=== PATIENT | female | born 1985 | race Caucasian/White ===

== ENCOUNTER 2020-03-13 05:30 | Emergency (ER) | payer BC, OTHER ==
[2020-03-13] MEDS ORDERED: Ondansetron 4 MG/2 ML SDV IVPUSH ONE ×2 (05:40→07:14)
[2020-03-13] MEDS ORDERED: Ketorolac 30 MG/ML SDV ONE (05:42)
[2020-03-13] MEDS ORDERED: Ondansetron 4 MG/2 ML SDV ONE (05:42)
[2020-03-13] MEDS ORDERED: Ketorolac 30 MG/ML SDV IVPUSH ONE (05:43)
[2020-03-13] MEDS: Sodium Chloride 0.9% 1,000 ML IV ONE ×2 (05:48→07:08)
[2020-03-13] MEDS ORDERED: Metoclopramide 10 MG/2 ML SDV IVPUSH ONE (05:59)
--- NOTE | 2020-03-13 05:59 | EDM.PDOC ---
ED HPI GENERAL MEDICAL PROBLEM - General Chief Complaint: Gastrointestinal Problem Stated Complaint: VOMITING Time Seen by Provider: 03/13/20 05:40 Source of Information: Reports: Patient History Limitations: Reports: No Limitations - History of Present Illness INITIAL COMMENTS - FREE TEXT/NARRATIVE: c/o N/V/D works as [employer], at trial the last 2d ate a taco 2d ago, began n/v at 4a yesterday (25.5h ago) would vomit every few minutes, has soreness of here throat from emesis, denies abd pain had "a squirt" of green liquid stool after each emesis altho diarrhea stopped 8.5h ago took no meds at home, on Ritalin for ADHD, last used 1w ago, no other meds does not like how Ritalin makes her feel and uses only when she has a big project lives with and dtr who are not ill only able to keep down ice chips no prior abd surgery drinks wine on occasion had a similar episode 2-3y ago which she ascribes to the norovirus 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 has an IUD - Related Data Allergies Allergy/AdvReac Type Severity Reaction Status Date / Time No Known Allergies Allergy Verified 03/13/20 05:40 Home Meds: Home Meds Omeprazole 20 mg PO DAILY #14 tablet.dr 03/13/20 [Rx] Potassium Chloride 20 meq PO BID #10 tablet.er 03/13/20 [Rx] ondansetron HCL [Ondansetron HCl] 4 mg PO Q4H PRN #12 tablet 03/13/20 [Rx] ED ROS GENERAL - Review of Systems Review Of Systems: See Below Constitutional: Reports: No Symptoms HEENT: Reports: No Symptoms Respiratory: Reports: No Symptoms Cardiovascular: Reports: No Symptoms Endocrine: Reports: No Symptoms GI/Abdominal: Reports: Diarrhea, Nausea, Vomiting, Other (unable to eat). Denies: Abdominal Pain, Hematochezia, Melena : Reports: No Symptoms Musculoskeletal: Reports: No Symptoms Skin: Reports: No Symptoms Neurological: Reports: No Symptoms Psychiatric: Reports: No Symptoms Hematologic/Lymphatic: Reports: No Symptoms Immunologic: Reports: No Symptoms ED EXAM, GI/ABD - Physical Exam Exam: See Below Exam Limited By: No Limitations General Appearance: Alert, WD/WN, Mild Distress Head: Atraumatic, Normocephalic Neck: Normal Inspection, Supple, Non-Tender, Full Range of Motion Respiratory/Chest: No Respiratory Distress, Lungs Clear, Normal Breath Sounds, No Accessory Muscle Use Cardiovascular: Regular Rate, Rhythm, No Edema, No Murmur GI/Abdominal Exam: Normal Bowel Sounds, Soft, Non-Tender, No Distention, Other (no point tender, ND, no HSM) Back Exam: Normal Inspection, Full Range of Motion. No: CVA Tenderness (R), CVA Tenderness (L) Extremities: Normal Inspection, Non-Tender, No Pedal Edema Neurological: Alert, Oriented, CN II-XII Intact, Normal Cognition, No Motor/Sensory Deficits Psychiatric: Normal Affect, Normal Mood Skin Exam: Warm, Dry, Intact, Normal Color, No Rash Lymphatic: No Adenopathy Course - Vital Signs Last Recorded V/S: Last Vital Signs Temp 36.7 C 03/13/20 05:30 Pulse 78 03/13/20 05:30 Resp 17 03/13/20 05:30 BP 150/90 H 03/13/20 05:30 Pulse Ox 98 03/13/20 05:30 - Orders/Labs/Meds Orders: Active Orders 24 hr Category Date Time Status EKG Documentation Completion [RC] ASDIRECTED Care 03/13/20 07:21 Ordered Abdomen Pelvis wo Cont [CT] Stat Exams 03/13/20 07:16 Ordered Chest 2V [CR] Stat Exams 03/13/20 07:19 Ordered CORONAVIRUS COVID-19 GAL [MOLEC] Stat Lab 03/13/20 06:45 Received Sodium Chloride 0.9% [Normal Saline] 1,000 ml Med 03/13/20 08:01 Active IV .BOLUS EKG 12 Lead [EK] Routine Ther 03/13/20 07:20 Ordered Medication Orders Sodium Chloride (Normal Saline) 1,000 mls @ 999 mls/hr IV .BOLUS ONE Stop: 03/13/20 09:01 Last Admin: 03/13/20 08:02 Dose: 999 mls/hr Documented by: LUCY Labs: Laboratory Tests 03/13/20 03/13/20 03/13/20 Range/Units 06:15 06:15 06:15 WBC (4.5-12.0) X10-3/uL RBC (3.23-5.20) x10(6)uL Hgb (11.5-15.5) g/dL Hct (30.0-51.3) % MCV (80-96) fL MCH (27.7-33.6) pg MCHC (32.2-35.4) g/dL RDW (11.5-15.5) % Plt Count (125-369) X10(3)uL MPV (7.4-10.4) fL Add Manual Diff Neutrophils % (Manual) (46-82) % Band Neutrophils % (0-6) % Lymphocytes % (Manual) (13-37) % Monocytes % (Manual) (4-12) % Sodium (135-145) mmol/L Potassium (3.5-5.3) mmol/L Chloride (100-110) mmol/L Carbon Dioxide (21-32) mmol/L BUN (7-18) mg/dL Creatinine (0.55-1.02) mg/dL Est Cr Clr Drug Dosing Estimated GFR (MDRD) (>60) BUN/Creatinine Ratio (9-20) Glucose (80-116) mg/dL Calcium (8.6-10.2) mg/dL Magnesium 1.9 (1.8-2.5) mg/dL Total Bilirubin (0.1-1.3) mg/dL AST (5-25) IU/L ALT (12-36) U/L Alkaline Phosphatase (56-112) IU/L Troponin I 4.5 (4.0-60.3) pg/mL C-Reactive Protein (0.5-0.9) mg/dL Total Protein (6.0-8.0) g/dL Albumin (3.5-5.2) g/dL Globulin g/dL Albumin/Globulin Ratio Lipase (73-393) U/L TSH, Ultra Sensitive 0.67 (0.36-3.74) IU/mL Urine Color (YELLOW) Urine Appearance (CLEAR) Urine pH (5.0-6.5) Ur Specific [place] (1.010-1.025) Urine Protein (NEGATIVE) mg/dL Urine Glucose (UA) (NORMAL) mg/dL Urine Ketones (NEGATIVE) mg/dL Urine Occult Blood (NEGATIVE) Urine Nitrite (NEGATIVE) Urine Bilirubin (NEGATIVE) Urine Urobilinogen (NEGATIVE) mg/dL Ur Leukocyte Esterase (NEGATIVE) Urine RBC (0-5) Urine WBC (0-5) Ur Squamous Epith Cells (NS,R,O) Urine Bacteria (NS) Urine HCG, Qual (NEGATIVE) Urine Opiates Screen (NEGATIVE) Ur Oxycodone Screen (NEGATIVE) Ur Propoxyphene Screen (NEGATIVE) Ur Barbituates Screen (NEGATIVE) Ur Tricyclics Screen (NEGATIVE) Ur Phencyclidine Scrn (NEGATIVE) Ur Amphetamine Screen (NEGATIVE) Urine MDMA Screen (NEGATIVE) U Benzodiazepines Scrn (NEGATIVE) U Cocaine Metab Screen (NEGATIVE) U Marijuana (THC) Screen (NEGATIVE) 03/13/20 03/13/20 03/13/20 Range/Units 06:25 06:25 06:25 WBC 19.3 H (4.5-12.0) X10-3/uL RBC 4.67 (3.23-5.20) x10(6)uL Hgb 14.1 (11.5-15.5) g/dL Hct 42.8 (30.0-51.3) % MCV 91.7 (80-96) fL MCH 30.2 (27.7-33.6) pg MCHC 32.9 (32.2-35.4) g/dL RDW 11.6 (11.5-15.5) % Plt Count 207 (125-369) X10(3)uL MPV 10.1 (7.4-10.4) fL Add Manual Diff Yes Neutrophils % (Manual) 89 H (46-82) % Band Neutrophils % 5 (0-6) % Lymphocytes % (Manual) 2 L (13-37) % Monocytes % (Manual) 4 (4-12) % Sodium 135 (135-145) mmol/L Potassium 2.9 L (3.5-5.3) mmol/L Chloride 95 L (100-110) mmol/L Carbon Dioxide 29 (21-32) mmol/L BUN 16 (7-18) mg/dL Creatinine 0.9 (0.55-1.02) mg/dL Est Cr Clr Drug Dosing TNP Estimated GFR (MDRD) > 60 (>60) BUN/Creatinine Ratio 17.8 (9-20) Glucose 163 H (80-116) mg/dL Calcium 9.1 (8.6-10.2) mg/dL Magnesium (1.8-2.5) mg/dL Total Bilirubin 0.7 (0.1-1.3) mg/dL AST 17 (5-25) IU/L ALT 17 (12-36) U/L Alkaline Phosphatase 84 (56-112) IU/L Troponin I (4.0-60.3) pg/mL C-Reactive Protein 3.2 H* (0.5-0.9) mg/dL Total Protein 7.8 (6.0-8.0) g/dL Albumin 4.0 (3.5-5.2) g/dL Globulin 3.8 g/dL Albumin/Globulin Ratio 1.1 Lipase 86 (73-393) U/L TSH, Ultra Sensitive (0.36-3.74) IU/mL Urine Color (YELLOW) Urine Appearance (CLEAR) Urine pH (5.0-6.5) Ur Specific [place] (1.010-1.025) Urine Protein (NEGATIVE) mg/dL Urine Glucose (UA) (NORMAL) mg/dL Urine Ketones (NEGATIVE) mg/dL Urine Occult Blood (NEGATIVE) Urine Nitrite (NEGATIVE) Urine Bilirubin (NEGATIVE) Urine Urobilinogen (NEGATIVE) mg/dL Ur Leukocyte Esterase (NEGATIVE) Urine RBC (0-5) Urine WBC (0-5) Ur Squamous Epith Cells (NS,R,O) Urine Bacteria (NS) Urine HCG, Qual (NEGATIVE) Urine Opiates Screen (NEGATIVE) Ur Oxycodone Screen (NEGATIVE) Ur Propoxyphene Screen (NEGATIVE) Ur Barbituates Screen (NEGATIVE) Ur Tricyclics Screen (NEGATIVE) Ur Phencyclidine Scrn (NEGATIVE) Ur Amphetamine Screen (NEGATIVE) Urine MDMA Screen (NEGATIVE) U Benzodiazepines Scrn (NEGATIVE) U Cocaine Metab Screen (NEGATIVE) U Marijuana (THC) Screen (NEGATIVE) 03/13/20 03/13/20 03/13/20 Range/Units 08:05 08:05 08:05 WBC (4.5-12.0) X10-3/uL RBC (3.23-5.20) x10(6)uL Hgb (11.5-15.5) g/dL Hct (30.0-51.3) % MCV (80-96) fL MCH (27.7-33.6) pg MCHC (32.2-35.4) g/dL RDW (11.5-15.5) % Plt Count (125-369) X10(3)uL MPV (7.4-10.4) fL Add Manual Diff Neutrophils % (Manual) (46-82) % Band Neutrophils % (0-6) % Lymphocytes % (Manual) (13-37) % Monocytes % (Manual) (4-12) % Sodium (135-145) mmol/L Potassium (3.5-5.3) mmol/L Chloride (100-110) mmol/L Carbon Dioxide (21-32) mmol/L BUN (7-18) mg/dL Creatinine (0.55-1.02) mg/dL Est Cr Clr Drug Dosing Estimated GFR (MDRD) (>60) BUN/Creatinine Ratio (9-20) Glucose (80-116) mg/dL Calcium (8.6-10.2) mg/dL Magnesium (1.8-2.5) mg/dL Total Bilirubin (0.1-1.3) mg/dL AST (5-25) IU/L ALT (12-36) U/L Alkaline Phosphatase (56-112) IU/L Troponin I (4.0-60.3) pg/mL C-Reactive Protein (0.5-0.9) mg/dL Total Protein (6.0-8.0) g/dL Albumin (3.5-5.2) g/dL Globulin g/dL Albumin/Globulin Ratio Lipase (73-393) U/L TSH, Ultra Sensitive (0.36-3.74) IU/mL Urine Color Yellow (YELLOW) Urine Appearance Slightly cloudy (CLEAR) Urine pH 9.0 H (5.0-6.5) Ur Specific [place] 1.015 (1.010-1.025) Urine Protein Negative (NEGATIVE) mg/dL Urine Glucose (UA) Normal (NORMAL) mg/dL Urine Ketones 50 H (NEGATIVE) mg/dL Urine Occult Blood Negative (NEGATIVE) Urine Nitrite Negative (NEGATIVE) Urine Bilirubin Negative (NEGATIVE) Urine Urobilinogen Normal (NEGATIVE) mg/dL Ur Leukocyte Esterase Negative (NEGATIVE) Urine RBC 0-5 (0-5) Urine WBC 0-5 (0-5) Ur Squamous Epith Cells Moderate H (NS,R,O) Urine Bacteria Few H (NS) Urine HCG, Qual Negative (NEGATIVE) Urine Opiates Screen Negative (NEGATIVE) Ur Oxycodone Screen Negative (NEGATIVE) Ur Propoxyphene Screen Negative (NEGATIVE) Ur Barbituates Screen Negative (NEGATIVE) Ur Tricyclics Screen Negative (NEGATIVE) Ur Phencyclidine Scrn Negative (NEGATIVE) Ur Amphetamine Screen Positive H (NEGATIVE) Urine MDMA Screen Negative (NEGATIVE) U Benzodiazepines Scrn Negative (NEGATIVE) U Cocaine Metab Screen Negative (NEGATIVE) U Marijuana (THC) Screen Positive H (NEGATIVE) Meds: Medications Generic Name Dose Route Start Last Admin Trade Name Freq PRN Reason Stop Dose Admin Sodium Chloride 1,000 mls @ 999 mls/hr 03/13/20 08:01 03/13/20 08:02 Normal Saline IV 03/13/20 09:01 999 mls/hr .BOLUS ONE Administration Discontinued Medications Generic Name Dose Route Start Last Admin Trade Name Freq PRN Reason Stop Dose Admin Hydroxyzine HCl 50 mg 03/13/20 06:21 03/13/20 06:27 Vistaril IM 03/13/20 06:22 50 mg ONETIME ONE Administration Sodium Chloride 1,000 mls @ 999 mls/hr 03/13/20 05:43 03/13/20 06:49 Normal Saline IV 03/13/20 06:43 Infused .BOLUS ONE Infusion Sodium Chloride 1,000 mls @ 999 mls/hr 03/13/20 06:05 03/13/20 07:08 Normal Saline IV 03/13/20 07:05 999 mls/hr .BOLUS ONE Administration Ketorolac Tromethamine Confirm 03/13/20 05:42 03/13/20 05:53 Toradol Administered 03/13/20 05:43 Not Given Dose 30 mg .ROUTE .STK-MED ONE Ketorolac Tromethamine 30 mg 03/13/20 05:43 03/13/20 06:26 Toradol IVPUSH 03/13/20 05:44 Not Given ONETIME ONE Lorazepam 1 mg 03/13/20 07:16 03/13/20 07:44 Ativan IVPUSH 03/13/20 07:17 1 mg ONETIME ONE Administration Metoclopramide HCl 10 mg 03/13/20 05:59 03/13/20 06:10 Reglan IVPUSH 03/13/20 06:00 10 mg ONETIME ONE Administration Ondansetron HCl 4 mg 03/13/20 05:40 03/13/20 05:45 Zofran IVPUSH 03/13/20 05:41 4 mg ONETIME ONE Administration Ondansetron HCl Confirm 03/13/20 05:42 03/13/20 05:52 Zofran Administered 03/13/20 05:43 Not Given Dose 4 mg .ROUTE .STK-MED ONE Ondansetron HCl 4 mg 03/13/20 07:14 03/13/20 07:44 Zofran IVPUSH 03/13/20 07:15 4 mg ONETIME ONE Administration - Re-Assessments/Exams Free Text/Narrative Re-Assessment/Exam: 03/13/20 08:22 MPMP is neg 03/13/20 10:08 pt is sound asleep, pt states she takes Ritalin prn although she has had no fill of Ritalin in the past year, yet there is amphetamine in her urine (as well as THC), which may have been a trigger for her GI sxs does have a HH with likely has had GERD with associated esophagitis no evidence of infection despite WBC 19.3 and left shift which is likely d/t amphetamine and severe dehydration etiology of CRP 3.2 is unclear on review of clinic records by RN, pt given Rx for Protonix by Dr Boyd in January - Departure Time of Disposition: 09:56 Disposition: Home, Self-Care 01 Condition: Good Clinical Impression: GERD with esophagitis, Hiatal hernia, Moderate dehydration, Hypokalemia - Discharge Information *PRESCRIPTION DRUG MONITORING PROGRAM REVIEWED*: Yes *COPY OF PRESCRIPTION DRUG MONITORING REPORT IN PATIENT BRENDA: No Prescriptions: Omeprazole 20 mg PO DAILY #14 tablet. ondansetron HCL [Ondansetron HCl] 4 mg PO Q4H PRN #12 tablet PRN Reason: Nausea Potassium Chloride 20 meq PO BID #10 tablet.er Instructions: Heartburn, Hiatal Hernia, Rehydration, Adult, Hypokalemia Forms: ED Department Discharge, ED Return to Work/School Form Additional Instructions: Go to the walk-in clinic tomorrow for a repeat CBC and further evaluation. Claire is the provider on duty and will be expecting you. There is no evidence of infection on the chest x-ray or CT scan. However, there is a hiatal hernia and evidence of reflux of acid into the esophagus. In order to decrease acid production, take omeprazole 20 mg 1 tab daily for 14 days. In order to coat and protect the esophagus and stomach, take liquid antacid 30 ml 4 times a day (usually after meals and bedtime). To replace potassium, take potassium 20 meq 1 tab 2 times a day for 5 days. Increase fluids, as you were quite dehydrated. No work today. Avoid street drugs including marijuana which can make your symptoms worse. Sepsis Event Note (ED) - Focused Exam Vital Signs: Vital Signs Temp Pulse Resp BP Pulse Ox 03/13/20 05:30 36.7 C 78 17 150/90 H 98 - My Orders Last 24 Hours: My Active Orders 03/13/20 06:45 CORONAVIRUS COVID-19 GAL [MOLEC] Stat 03/13/20 07:16 Abdomen Pelvis wo Cont [CT] Stat 03/13/20 07:19 Chest 2V [CR] Stat 03/13/20 07:20 EKG 12 Lead [EK] Routine 03/13/20 07:21 EKG Documentation Completion [RC] ASDIRECTED 03/13/20 08:01 Sodium Chloride 0.9% [Normal Saline] 1,000 ml IV .BOLUS - Assessment/Plan Last 24 Hours: My Active Orders 03/13/20 06:45 CORONAVIRUS COVID-19 GAL [MOLEC] Stat 03/13/20 07:16 Abdomen Pelvis wo Cont [CT] Stat 03/13/20 07:19 Chest 2V [CR] Stat 03/13/20 07:20 EKG 12 Lead [EK] Routine 03/13/20 07:21 EKG Documentation Completion [RC] ASDIRECTED 03/13/20 08:01 Sodium Chloride 0.9% [Normal Saline] 1,000 ml IV .BOLUS
[2020-03-13] MEDS ORDERED: Sodium Chloride 0.9% 1,000 ML IV ONE ×2 (06:05→08:01)
[2020-03-13] MEDS ORDERED: hydrOXYzine HCl 50 MG/ML SDV IM ONE (06:21)
[2020-03-13] MEDS ORDERED: LORazepam 2 MG/ML SDV IVPUSH ONE (07:16)
[2020-03-13] MEDS ORDERED: Iopamidol 755 Mg/ML 100 ML Bottle IV ONE (08:38)
== END 2020-03-13 10:00 | disposition home or self-care (01) ==
LOC: FB.ED 05:30
DX: K21.00 Gastro-esophageal reflux disease with esophagitis, without bleeding (principal); K44.9 Diaphragmatic hernia without obstruction or gangrene; E86.0 Dehydration; E87.6 Hypokalemia
CPT/HCPCS: 36415; 71046; 74177; 80053; 80305; 81001; 81025; 83690; 83735; 84443; 84484; 85025; 86140; 87635; 93005; 96361; 96372; 96374; 96375; 96376; 99284; J2060; J2405; J2765; J3410; J7030; Q9967; U0002

== ENCOUNTER 2020-03-14 12:04 | Emergency (ER) | payer BC, OTHER ==
[2020-03-14] MEDS ORDERED: Prochlorperazine 5 MG Tab PO ONE (12:05)
--- NOTE | 2020-03-14 12:38 | EDM.PDOC ---
ED HPI GENERAL MEDICAL PROBLEM - General Chief Complaint: Gastrointestinal Problem Stated Complaint: VOMITING DAYS CANT KEEP ANYTHING DOWN Time Seen by Provider: 03/14/20 12:38 Source of Information: Reports: Patient History Limitations: Reports: No Limitations - History of Present Illness INITIAL COMMENTS - FREE TEXT/NARRATIVE: 35-year-old female who awoke at 4 AM on 03/12/2020 with vomiting and has had protracted vomiting since that time. She was seen in the emergency department yesterday by Dr. Teresa had a fairly complete and thorough workup which included blood tests, urine tests, chest x-ray and CT scan of abdomen and pelvis. She did have some mild hypokalemia and she had elevated white blood cell count. However, the chest x-ray and the CT scan of her abdomen and pelvis were normal. She was given 3 L of normal saline IV and was discharged with oral Zofran. According to the patient, she has had protracted vomiting since discharge and has since developed some the gastric pain that seems to be worse with palpation and also with vomiting. She also has a sore throat associated with vomiting. She reports vomiting 20+ times. She has had no bowel movement since , 03/12/2020, but did have diarrhea at that time. She reports the pain is an "aggravating" pain she would rated as a 3-4/10. No fevers or chills. No urine output since yesterday when she was here in the emergency department. No cough. No difficulty breathing. She reports that she feels weak and dizzy. No syncope but near syncope at times when she has stood up. No sick contacts. No other people in her household with similar symptoms. There are no other associated signs or symptoms. There are no other modifying factors. 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) - Related Data Allergies Allergy/AdvReac Type Severity Reaction Status Date / Time No Known Allergies Allergy Verified 03/14/20 12:40 Home Meds: Home Meds Omeprazole 20 mg PO DAILY #14 tablet.dr 03/13/20 [Rx] Potassium Chloride 20 meq PO BID #10 tablet.er 03/13/20 [Rx] ondansetron HCL [Ondansetron HCl] 4 mg PO Q4H PRN #12 tablet 03/13/20 [Rx] Methylphenidate HCl 20 mg PO DAILY 03/14/20 [History] Past Medical History Psychiatric History: Reports: ADHD, Anxiety, Bipolar, Depression - Past Surgical History HEENT Surgical History: Reports: Oral Surgery ([place] teeth extraction) Social & Family History - Tobacco Use Smoking Status *Q: Former Smoker (Quit in 2010.) - Caffeine Use Caffeine Use: Reports: None - Alcohol Use Alcohol Use History: Yes Alcohol Use Frequency: Weekly (Drinks a few glasses of wine about 3 times a week.) - Recreational Drug Use Recreational Drug Use: Yes Drug Use in Last 12 Months: Yes Recreational Drug Type: Reports: Marijuana/Hashish - Living Situation & Occupation Living situation: Reports: 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.) ED ROS GENERAL - Review of Systems Review Of Systems: See Below Constitutional: Reports: Weakness HEENT: Reports: Throat Pain Respiratory: Reports: No Symptoms Cardiovascular: Reports: No Symptoms GI/Abdominal: Reports: Abdominal Pain (Epigastric abdominal pain which developed yesterday.), Nausea, Vomiting : Reports: Other (Decreased urine output with no urine output since in the emergency department yesterday.) Musculoskeletal: Reports: No Symptoms Skin: Reports: No Symptoms Neurological: Reports: Dizziness, Weakness (All over) Hematologic/Lymphatic: Reports: No Symptoms Immunologic: Reports: No Symptoms ED EXAM, GI/ABD - Physical Exam Exam: See Below Exam Limited By: No Limitations General Appearance: Alert, Moderate Distress, Obese, Other (Blanco and appropriate in her conversation.) Eyes: Bilateral: Normal Appearance (Sclera are anicteric.), EOMI Ears: Normal External Exam, Hearing Grossly Normal Nose: Normal Inspection, Normal Mucosa, No Blood Throat/Mouth: Normal Voice, No Airway Compromise, Other (Dry mucous membranes.) Head: Atraumatic, Normocephalic Neck: Normal Inspection, Supple, Non-Tender, Full Range of Motion Respiratory/Chest: No Respiratory Distress, Lungs Clear, Normal Breath Sounds, N o Accessory Muscle Use, Chest Non-Tender Cardiovascular: Normal Peripheral Pulses, Regular Rate, Rhythm, No JVD, No Murmur GI/Abdominal Exam: Normal Bowel Sounds, Soft, No Distention, No Mass, Tender (In epigastrium, mild) Back Exam: Normal Inspection, Full Range of Motion Extremities: Normal Inspection, Normal Range of Motion, Non-Tender, No Pedal Edema, Normal Capillary Refill Neurological: Alert, Oriented, CN II-XII Intact, Normal Cognition, No Motor/Sensory Deficits Psychiatric: Normal Affect Skin Exam: Warm, Dry, Intact, Normal Color, No Rash Lymphatic: No Adenopathy Course - Vital Signs Last Recorded V/S: Last Vital Signs Temp 36.6 C 03/14/20 12:20 Pulse 77 03/14/20 15:00 Resp 20 03/14/20 15:00 BP 146/88 H 03/14/20 15:00 Pulse Ox 99 03/14/20 15:00 - Orders/Labs/Meds Orders: Active Orders 24 hr Category Date Time Status Potassium Chloride [Klor-Con] Med 03/14/20 17:15 Active 40 meq PO ASDIRECTED Sodium Chloride 0.9% [Saline Flush] Med 03/14/20 12:59 Active 10 ml FLUSH ASDIRECTED PRN Peripheral IV Insertion Adult [OM.PC] Routine Oth 03/14/20 12:59 Ordered Medication Orders Potassium Chloride (Klor-Con) 40 meq PO ASDIRECTED KAYE Last Admin: 03/14/20 17:30 Dose: 40 meq Documented by: DENIS Sodium Chloride (Saline Flush) 10 ml FLUSH ASDIRECTED PRN PRN Reason: Keep Vein Open Labs: Laboratory Tests 03/14/20 03/14/20 03/14/20 Range/Units 12:10 13:37 13:37 WBC 13.0 H (4.5-12.0) X10-3/uL RBC 4.54 (3.23-5.20) x10(6)uL Hgb 14.4 (11.5-15.5) g/dL Hct 42.1 (30.0-51.3) % MCV 92.8 (80-96) fL MCH 31.6 (27.7-33.6) pg MCHC 34.1 (32.2-35.4) g/dL RDW 11.9 (11.5-15.5) % Plt Count 217 (125-369) X10(3)uL MPV 9.9 (7.4-10.4) fL Neut % (Auto) 86.0 H (46-82) % Lymph % (Auto) 7.2 L (13-37) % [place] % (Auto) 6.5 (4-12) % Eos % (Auto) 0 L (1.0-5.0) % Baso % (Auto) 0 (0-2) % Neut # (Auto) 11.2 H (1.6-8.3) # Lymph # (Auto) 0.9 (0.6-5.0) # [place] # (Auto) 0.8 (0.0-1.3) # Eos # (Auto) 0.0 (0.0-0.8) # Baso # (Auto) 0.0 (0.0-0.2) # Sodium 138 (135-145) mmol/L Potassium 3.0 L (3.5-5.3) mmol/L Chloride 97 L (100-110) mmol/L Carbon Dioxide 32 (21-32) mmol/L BUN 11 (7-18) mg/dL Creatinine 0.8 (0.55-1.02) mg/dL Est Cr Clr Drug Dosing 98.07 mL/min Estimated GFR (MDRD) > 60 (>60) BUN/Creatinine Ratio 13.8 (9-20) Glucose 103 (80-116) mg/dL Calcium 8.6 (8.6-10.2) mg/dL Magnesium 2.2 (1.8-2.5) mg/dL Total Bilirubin 0.5 (0.1-1.3) mg/dL AST 18 (5-25) IU/L ALT 17 (12-36) U/L Alkaline Phosphatase 71 (56-112) IU/L Total Protein 7.3 (6.0-8.0) g/dL Albumin 3.5 (3.5-5.2) g/dL Globulin 3.8 g/dL Albumin/Globulin Ratio 0.9 Lipase (73-393) U/L 10/10/20 Range/Units 13:37 WBC (4.5-12.0) X10-3/uL RBC (3.23-5.20) x10(6)uL Hgb (11.5-15.5) g/dL Hct (30.0-51.3) % MCV (80-96) fL MCH (27.7-33.6) pg MCHC (32.2-35.4) g/dL RDW (11.5-15.5) % Plt Count (125-369) X10(3)uL MPV (7.4-10.4) fL Neut % (Auto) (46-82) % Lymph % (Auto) (13-37) % [place] % (Auto) (4-12) % Eos % (Auto) (1.0-5.0) % Baso % (Auto) (0-2) % Neut # (Auto) (1.6-8.3) # Lymph # (Auto) (0.6-5.0) # [place] # (Auto) (0.0-1.3) # Eos # (Auto) (0.0-0.8) # Baso # (Auto) (0.0-0.2) # Sodium (135-145) mmol/L Potassium (3.5-5.3) mmol/L Chloride (100-110) mmol/L Carbon Dioxide (21-32) mmol/L BUN (7-18) mg/dL Creatinine (0.55-1.02) mg/dL Est Cr Clr Drug Dosing mL/min Estimated GFR (MDRD) (>60) BUN/Creatinine Ratio (9-20) Glucose (80-116) mg/dL Calcium (8.6-10.2) mg/dL Magnesium (1.8-2.5) mg/dL Total Bilirubin (0.1-1.3) mg/dL AST (5-25) IU/L ALT (12-36) U/L Alkaline Phosphatase (56-112) IU/L Total Protein (6.0-8.0) g/dL Albumin (3.5-5.2) g/dL Globulin g/dL Albumin/Globulin Ratio Lipase 80 (73-393) U/L Meds: Medications Generic Name Dose Route Start Last Admin Trade Name Freq PRN Reason Stop Dose Admin Potassium Chloride 40 meq 03/14/20 17:15 03/14/20 17:30 Klor-Con PO 40 meq ASDIRECTED KAYE Administration Sodium Chloride 10 ml 10/10/20 12:59 Saline Flush FLUSH ASDIRECTED PRN Keep Vein Open Discontinued Medications Generic Name Dose Route Start Last Admin Trade Name Tarsha PRN Reason Stop Dose Admin Sodium Chloride 1,000 mls @ 999 mls/min 03/14/20 13:00 03/14/20 15:00 Normal Saline IV 999 mls/min .BOLUS KAYE Administration Promethazine HCl 25 mg/ Sodium 51 mls @ 200 mls/hr 03/14/20 13:01 03/14/20 13:41 Chloride IV 03/14/20 13:16 200 mls/hr ONETIME ONE Administration Potassium Chloride 10 meq/ 100 mls @ 100 mls/hr 03/14/20 15:14 03/14/20 15:34 Premix IV 03/14/20 16:13 100 mls/hr ONETIME ONE Administration Sodium Chloride 1,000 mls @ 999 mls/hr 03/14/20 18:01 03/14/20 19:17 Normal Saline IV 03/14/20 19:01 999 mls/hr .BOLUS ONE Administration Metoclopramide HCl 10 mg 03/14/20 18:01 03/14/20 19:16 Reglan IVPUSH 03/14/20 18:02 10 mg ONETIME ONE Administration Ondansetron HCl 4 mg 03/14/20 13:00 03/14/20 13:33 Zofran IVPUSH 03/14/20 13:01 4 mg ONETIME ONE Administration Pantoprazole Sodium 80 mg 03/14/20 13:05 03/14/20 13:42 Protonix Iv IVPUSH 03/14/20 13:06 80 mg .BOLUS ONE Administration - Re-Assessments/Exams Free Text/Narrative Re-Assessment/Exam: 03/14/20 18:50: Patient had received some normal saline as a bolus and she had also received Phenergan IV and Zofran IV. She was feeling much improved and had had no further emesis and was able to take ice chips without any nausea or vomiting. She had been given potassium chloride 10 mEq IV and we had attempted to give her 40 mEq of potassium orally and this had caused her to have nausea and some dry heaving. She will now be getting another liter of normal saline as a bolus and Reglan 10 mg IV. She is very much wanted to go home and feels that this is what it would take in order to facilitate her being able to go home. 03/14/20 20:20: Patient has received the other liter of normal saline as a bolus and the Reglan and she feels improved. She has no more nausea and wants to go home. Her blood tests were all reassuringly normal except for a slightly low potassium at 3.0. Her white blood cell count was 13.0 and her abdomen is essentially benign now. I will give the patient a take home pack of Compazine and she can use this in addition to the friend that she has for nausea. She should rest. She should stick with liquids for the next 12-18 hours and then advance her diet as tolerated. Precautions and reasons for return to the emergency department were discussed with the patient will she was in the emergency department were detailed in her discharge instructions. Departure - Departure Time of Disposition: 20:40 Disposition: Home, Self-Care 01 Condition: Good (Improved) Clinical Impression: Dehydration, Hypokalemia Vomiting Qualifiers: Vomiting type: unspecified Vomiting Intractability: intractable Nausea presence: with nausea Qualified Code(s): R11.2 - Nausea with vomiting, unspecified Gastritis Qualifiers: Gastritis type: unspecified gastritis Chronicity: acute Gastritis bleeding: without bleeding Qualified Code(s): K29.00 - Acute gastritis without bleeding - Discharge Information Instructions: Hypokalemia, Dehydration, Adult, [id number], Gastritis, Adult, [id number], Nausea and Vomiting, Adult, [id number] Referrals: Guerrero Lee MD [Primary Care Provider] - Forms: ED Department Discharge Additional Instructions: Your blood tests were the most part normal but you did have a slightly low potassium still. Your white blood cell count was decreased. You appear to have an inflammation of your stomach called gastritis. You also appeared to be dehydrated. Rest. Drink small amounts of fluids frequently and increase the fluid intake as you tolerated. Stick with clear liquids for the next 12-18 hours and advance your diet slowly as tolerated. You should get some [id number] Pepcid take that for the next week. Other medication as prescribed (Compazine). You should continue the Zofran as needed for nausea as well. Back to the emergency department for marked increase in pain, unrelenting vomiting or any other concerning sign or symptom. Sepsis Event Note (ED) - Focused Exam Vital Signs: Vital Signs Temp Pulse Resp BP Pulse Ox 03/14/20 15:00 77 20 146/88 H 99 03/14/20 12:35 71 16 146/88 H 99 03/14/20 12:25 79 18 146/88 H 99 03/14/20 12:20 36.6 C 77 20 131/101 H 99 - My Orders Last 24 Hours: My Active Orders 03/14/20 12:59 Sodium Chloride 0.9% [Saline Flush] 10 ml FLUSH ASDIRECTED PRN Peripheral IV Insertion Adult [OM.PC] Routine 03/14/20 17:15 Potassium Chloride [Klor-Con] 40 meq PO ASDIRECTED - Assessment/Plan Last 24 Hours: My Active Orders 03/14/20 12:59 Sodium Chloride 0.9% [Saline Flush] 10 ml FLUSH ASDIRECTED PRN Peripheral IV Insertion Adult [OM.PC] Routine 03/14/20 17:15 Potassium Chloride [Klor-Con] 40 meq PO ASDIRECTED
[2020-03-14] MEDS ORDERED: Sodium Chloride 0.9% 10 ML Syringe FLUSH PRN (12:59)
[2020-03-14] MEDS ORDERED: Ondansetron 4 MG/2 ML SDV IVPUSH ONE (13:00)
[2020-03-14] MEDS ORDERED: Promethazine 25 MG in Sodium Chloride 0.9% 50 ML IV ONE (13:01)
[2020-03-14] MEDS ORDERED: Pantoprazole 40 MG Vial IVPUSH ONE (13:05)
[2020-03-14] MEDS: Sodium Chloride 0.9% 1,000 ML IV SCH ×2 (13:51→15:00)
[2020-03-14] MEDS ORDERED: Potassium Chloride 10 MEQ in Premix Bag 1 BAG IV ONE (15:14)
[2020-03-14] MEDS ORDERED: Potassium Chloride 20 MEQ Packet PO SCH (17:15)
[2020-03-14] MEDS ORDERED: Metoclopramide 10 MG/2 ML SDV IVPUSH ONE (18:01)
[2020-03-14] MEDS ORDERED: Sodium Chloride 0.9% 1,000 ML IV ONE (18:01)
== END 2020-03-14 20:50 | disposition home or self-care (01) ==
LOC: FB.ED 12:04
DX: K29.00 Acute gastritis without bleeding (principal); E86.0 Dehydration; E87.6 Hypokalemia; F90.9 Attention-deficit hyperactivity disorder, unspecified type; Z79.899 Other long term (current) drug therapy; Z87.891 Personal history of nicotine dependence
CPT/HCPCS: 36415; 80053; 83690; 83735; 85025; 96361; 96365; 96367; 96375; 99284; A9270; C9113; J2405; J2550; J2765; J3480; J7030; Q0164

== ENCOUNTER 2020-07-04 18:04 | Observation (INO) | payer BC, OTHER ==
[2020-07-04] MEDS ORDERED: Ondansetron 4 MG/2 ML SDV ONE (18:16)
[2020-07-04] MEDS ORDERED: Ondansetron 4 MG/2 ML SDV IVPUSH ONE (18:16)
[2020-07-04] MEDS ORDERED: Pantoprazole 40 MG Vial IVPUSH ONE (18:22)
--- NOTE | 2020-07-04 18:22 | EDM.PDOC ---
<Marilyn Barajas U - Last Filed: 07/04/20 19:03> ED HPI GENERAL MEDICAL PROBLEM - General Stated Complaint: VOMITING Time Seen by Provider: 07/04/20 18:15 Source of Information: Reports: Patient History Limitations: Reports: No Limitations - History of Present Illness INITIAL COMMENTS - FREE TEXT/NARRATIVE: started have nausea and vomiting since 9am today and since then has been on non stop many clear , bile pt has not been able to keep anything down pt states she has a history of hiatal hernia that occasionally will act up and she will start vomiting . Lat episode was in march , had to have 6 liters of fluid and k supplement [place] , had EGD done : diagnosed with hiatal hernia and given prilosec states surgery has not been discussed with her Onset: Today Onset Date: 07/04/20 - Related Data Allergies Allergy/AdvReac Type Severity Reaction Status Date / Time No Known Allergies Allergy Verified 03/14/20 12:40 Home Meds: Home Meds Omeprazole 20 mg PO DAILY #14 tablet.dr 03/13/20 [Rx] Potassium Chloride 20 meq PO BID #10 tablet.er 03/13/20 [Rx] ondansetron HCL [Ondansetron HCl] 4 mg PO Q4H PRN #12 tablet 03/13/20 [Rx] Methylphenidate HCl 20 mg PO DAILY 03/14/20 [History] LORazepam [Ativan] 1 mg PO Q8H PRN #5 tablet 07/04/20 [Rx] Ondansetron [Zofran ODT] 4 mg PO Q4H PRN #7 tab.dis 07/04/20 [Rx] Potassium Chloride [Klor-Con] 40 meq PO TID #6 packet 07/04/20 [Rx] Past Medical History - Past Health History Medical/Surgical History: Denies Medical/Surgical History Respiratory History: Reports: Other (See Below) Other Respiratory History: former smoker quit year 2010 [employer] History: Reports: Psychiatric History: Reports: ADHD, Anxiety, Bipolar, Depression - Past Surgical History HEENT Surgical History: Reports: Oral Surgery ([place] teeth extraction) Social & Family History - Family History Family Medical History: No Pertinent Family History - Caffeine Use Caffeine Use: Reports: None - Living Situation & Occupation Living situation: Reports: 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 Denies: Malaise HEENT: Reports: No Symptoms Respiratory: Reports: No Symptoms Cardiovascular: Reports: No Symptoms Endocrine: Reports: No Symptoms GI/Abdominal: Reports: Anorexia, Decreased Appetite, Vomiting. Denies: Diarrhea : Reports: No Symptoms Musculoskeletal: Reports: No Symptoms Skin: Reports: No Symptoms Neurological: Reports: No Symptoms Psychiatric: Reports: No Symptoms Hematologic/Lymphatic: Reports: No Symptoms Immunologic: Reports: No Symptoms ED EXAM, GI/ABD - Physical Exam Exam: See Below Exam Limited By: No Limitations General Appearance: Alert, WD/WN, No Apparent Distress Ears: Normal TMs Throat/Mouth: Normal Inspection, Normal Oropharynx Head: Atraumatic, Normocephalic Neck: Supple, Non-Tender Respiratory/Chest: No Respiratory Distress, Lungs Clear Cardiovascular: Normal Peripheral Pulses, Regular Rate, Rhythm GI/Abdominal Exam: Soft, Non-Tender, Tender (in the epigastrium). No: Distended Back Exam: Normal Inspection, Full Range of Motion Extremities: Normal Inspection, Normal Range of Motion Neurological: Alert, Oriented, CN II-XII Intact Psychiatric: Normal Affect, Normal Mood Skin Exam: Warm, Dry, Intact Lymphatic: No Adenopathy Departure - Departure Disposition: Home, Self-Care 01 Condition: Fair Clinical Impression: Hiatal hernia, Hypokalemia, Moderate dehydration, GERD (gastroesophageal reflux disease) Vomiting Qualifiers: Vomiting type: unspecified Vomiting Intractability: intractable Nausea presence: with nausea Qualified Code(s): R11.2 - Nausea with vomiting, unspecified - Discharge Information *PRESCRIPTION DRUG MONITORING PROGRAM REVIEWED*: Not Applicable *COPY OF PRESCRIPTION DRUG MONITORING REPORT IN PATIENT BRENDA: Not Applicable Prescriptions: LORazepam [Ativan] 1 mg PO Q8H PRN #5 tablet PRN Reason: anxiety/nausea Potassium Chloride [Klor-Con] 40 meq PO TID #6 packet Ondansetron [Zofran ODT] 4 mg PO Q4H PRN #7 tab.dis PRN Reason: Nausea Instructions: Hernia, Adult, Hypokalemia, Dehydration, Adult, [id number], Nausea and Vomiting, Adult, Gastroesophageal Reflux Disease, Adult, [id number], Dehydration, Adult Referrals: Guerrero Lee MD [Primary Care Provider] - Forms: ED Department Discharge Additional Instructions: Please read discharge instructions on Dehydration, GERD,Hiatal Hernia, Hypokalemia Increase oral fluids Zofran ODT 4 mg every 4 hours as needed for nausea Ativan 1 mg every 8 hours as needed for nausea and anxiety klor con 20 meq, take 2 tablets 3 times daily just for 1 days Follow up as needed <Joe Alvarado - Last Filed: 07/04/20 20:27> Course - Vital Signs Last Recorded V/S: Last Vital Signs Temp 36.7 C 07/04/20 18:04 Pulse 85 07/04/20 18:04 Resp 17 07/04/20 18:04 BP 153/107 H 07/04/20 18:04 Pulse Ox 100 07/04/20 18:04 - Orders/Labs/Meds Orders: Active Orders 24 hr Category Date Time Status NS + KCl 20mEq/L [Normal Saline with 20 mEq KCl] 1,000 Med 07/04/20 19:15 Active ml IV ASDIRECTED Promethazine [Phenergan] Med 07/04/20 18:49 Active 25 mg IV Q4H PRN Sodium Chloride 0.9% [Normal Saline] 1,000 ml Med 07/04/20 18:30 Active IV ASDIRECTED Sodium Chloride 0.9% [Normal Saline] 1,000 ml Med 07/04/20 18:30 Active IV ASDIRECTED Medication Orders Sodium Chloride (Normal Saline) 1,000 mls @ 999 mls/hr IV ASDIRECTED KAYE Last Admin: 07/04/20 18:20 Dose: 999 mls/hr Documented by: ARTHUR Sodium Chloride (Normal Saline) 1,000 mls @ 999 mls/hr IV ASDIRECTED KAYE Potassium Chloride/Sodium Chloride (Normal Saline With 20 Meq Kcl) 1,000 mls @ 999 mls/hr IV ASDIRECTED KAYE Last Admin: 07/04/20 19:24 Dose: 999 mls/hr Documented by: STERLING Promethazine HCl (Phenergan) 25 mg IV Q4H PRN PRN Reason: Nausea/Vomiting Last Admin: 07/04/20 18:56 Dose: 25 mg Documented by: [id number] Labs: Laboratory Tests 07/04/20 07/04/20 07/04/20 Range/Units 18:34 18:34 18:40 WBC 14.8 H (3.0-10.3) x10-3/uL RBC 5.06 (3.60-5.20) x10(6)uL Hgb 15.1 (11.4-15.5) g/dL Hct 45.6 (34.2-48.2) % MCV 90.2 (76.7-100.5) fL MCH 29.9 (23.9-33.9) pg MCHC 33.2 (31.9-34.8) g/dL RDW 12.7 (12.3-16.5) % Plt Count 344 (151-488) x10(3)uL MPV 10.5 (7.1-12.4) fL Add Manual Diff Yes Neutrophils % (Manual) 84 H (46-82) % Band Neutrophils % 1 (0-6) % Lymphocytes % (Manual) 8 L (13-37) % Monocytes % (Manual) 7 (4-12) % Sodium 138 (135-145) mmol/L Potassium 2.8 L* (3.5-5.3) mmol/L Chloride 95 L (100-110) mmol/L Carbon Dioxide 29 (21-32) mmol/L BUN 16 (7-18) mg/dL Creatinine 1.0 (0.55-1.02) mg/dL Est Cr Clr Drug Dosing 89.75 mL/min Estimated GFR (MDRD) > 60 (>60) BUN/Creatinine Ratio 16.0 (9-20) Glucose 123 H (80-116) mg/dL Calcium 8.8 (8.6-10.2) mg/dL Total Bilirubin 0.6 (0.1-1.3) mg/dL AST 17 (5-25) IU/L ALT 19 D (12-36) U/L Alkaline Phosphatase 85 (56-112) IU/L Total Protein 7.9 (6.0-8.0) g/dL Albumin 4.3 (3.5-5.2) g/dL Globulin 3.6 g/dL Albumin/Globulin Ratio 1.2 Urine Color [place] (YELLOW) Urine Appearance Clear (CLEAR) Urine pH 6.0 (5.0-6.5) Ur Specific [place] 1.020 (1.010-1.025) Urine Protein 30 H (NEGATIVE) mg/dL Urine Glucose (UA) Normal (NORMAL) mg/dL Urine Ketones 50 H (NEGATIVE) mg/dL Urine Occult Blood Negative (NEGATIVE) Urine Nitrite Negative (NEGATIVE) Urine Bilirubin Negative (NEGATIVE) Urine Urobilinogen Normal (NEGATIVE) mg/dL Ur Leukocyte Esterase Negative (NEGATIVE) Urine RBC 0-5 (0-5) Urine WBC 0-5 (0-5) Ur Squamous Epith Cells Rare (NS,R,O) Urine Bacteria Few H (NS) Urine Opiates Screen (NEGATIVE) Ur Oxycodone Screen (NEGATIVE) Ur Propoxyphene Screen (NEGATIVE) Ur Barbituates Screen (NEGATIVE) Ur Tricyclics Screen (NEGATIVE) Ur Phencyclidine Scrn (NEGATIVE) Ur Amphetamine Screen (NEGATIVE) Urine MDMA Screen (NEGATIVE) U Benzodiazepines Scrn (NEGATIVE) U Cocaine Metab Screen (NEGATIVE) U Marijuana (THC) Screen (NEGATIVE) 07/04/20 Range/Units 18:40 WBC (3.0-10.3) x10-3/uL RBC (3.60-5.20) x10(6)uL Hgb (11.4-15.5) g/dL Hct (34.2-48.2) % MCV (76.7-100.5) fL MCH (23.9-33.9) pg MCHC (31.9-34.8) g/dL RDW (12.3-16.5) % Plt Count (151-488) x10(3)uL MPV (7.1-12.4) fL Add Manual Diff Neutrophils % (Manual) (46-82) % Band Neutrophils % (0-6) % Lymphocytes % (Manual) (13-37) % Monocytes % (Manual) (4-12) % Sodium (135-145) mmol/L Potassium (3.5-5.3) mmol/L Chloride (100-110) mmol/L Carbon Dioxide (21-32) mmol/L BUN (7-18) mg/dL Creatinine (0.55-1.02) mg/dL Est Cr Clr Drug Dosing mL/min Estimated GFR (MDRD) (>60) BUN/Creatinine Ratio (9-20) Glucose (80-116) mg/dL Calcium (8.6-10.2) mg/dL Total Bilirubin (0.1-1.3) mg/dL AST (5-25) IU/L ALT (12-36) U/L Alkaline Phosphatase (56-112) IU/L Total Protein (6.0-8.0) g/dL Albumin (3.5-5.2) g/dL Globulin g/dL Albumin/Globulin Ratio Urine Color (YELLOW) Urine Appearance (CLEAR) Urine pH (5.0-6.5) Ur Specific [place] (1.010-1.025) Urine Protein (NEGATIVE) mg/dL Urine Glucose (UA) (NORMAL) mg/dL Urine Ketones (NEGATIVE) mg/dL Urine Occult Blood (NEGATIVE) Urine Nitrite (NEGATIVE) Urine Bilirubin (NEGATIVE) Urine Urobilinogen (NEGATIVE) mg/dL Ur Leukocyte Esterase (NEGATIVE) Urine RBC (0-5) Urine WBC (0-5) Ur Squamous Epith Cells (NS,R,O) Urine Bacteria (NS) Urine Opiates Screen Negative (NEGATIVE) Ur Oxycodone Screen Negative (NEGATIVE) Ur Propoxyphene Screen Negative (NEGATIVE) Ur Barbituates Screen Negative (NEGATIVE) Ur Tricyclics Screen Negative (NEGATIVE) Ur Phencyclidine Scrn Negative (NEGATIVE) Ur Amphetamine Screen Negative (NEGATIVE) Urine MDMA Screen Negative (NEGATIVE) U Benzodiazepines Scrn Negative (NEGATIVE) U Cocaine Metab Screen Negative (NEGATIVE) U Marijuana (THC) Screen Positive H (NEGATIVE) Meds: Medications Generic Name Dose Route Start Last Admin Trade Name Freq PRN Reason Stop Dose Admin Sodium Chloride 1,000 mls @ 999 mls/hr 07/04/20 18:30 07/04/20 18:20 Normal Saline IV 999 mls/hr ASDIRECTED KAYE Administration Sodium Chloride 1,000 mls @ 999 mls/hr 07/04/20 18:30 Normal Saline IV ASDIRECTED KAYE Potassium Chloride/Sodium Chloride 1,000 mls @ 999 mls/hr 07/04/20 19:15 07/04/20 19:24 Normal Saline With 20 Meq Kcl IV 999 mls/hr ASDIRECTED KAYE Administration Promethazine HCl 25 mg 07/04/20 18:49 07/04/20 18:56 Phenergan IV 25 mg Q4H PRN Administration Nausea/Vomiting Discontinued Medications Generic Name Dose Route Start Last Admin Trade Name Freq PRN Reason Stop Dose Admin Dexamethasone 10 mg 07/04/20 19:30 07/04/20 19:40 Decadron IVPUSH 07/04/20 19:31 10 mg NOW STA Administration Lorazepam 1 mg 07/04/20 19:14 07/04/20 19:32 Ativan IVPUSH 07/04/20 19:15 1 mg NOW STA Administration Lorazepam 1 mg 07/04/20 20:14 07/04/20 20:20 Ativan IVPUSH 07/04/20 20:15 1 mg NOW STA Administration Ondansetron HCl 4 mg 07/04/20 18:16 07/04/20 18:20 Zofran IVPUSH 07/04/20 18:17 4 mg ONETIME ONE Administration Ondansetron HCl Confirm 07/04/20 18:16 07/04/20 18:25 Zofran Administered 07/04/20 18:17 Not Given Dose 4 mg .ROUTE .STK-MED ONE Ondansetron HCl 4 mg 07/04/20 19:14 07/04/20 19:20 Zofran IVPUSH 07/04/20 19:15 4 mg NOW STA Administration Pantoprazole Sodium 40 mg 07/04/20 18:22 07/04/20 18:29 Protonix Iv IVPUSH 07/04/20 18:23 40 mg ONETIME ONE Administration Potassium Chloride 40 meq 07/04/20 19:00 07/04/20 19:25 Klor-Con M20 PO 07/04/20 19:01 40 meq ONETIME ONE Administration Potassium Chloride 40 meq 07/04/20 20:13 Klor-Con M20 PO 07/04/20 20:14 NOW STA Departure - Departure Time of Disposition: 20:30 Condition: Good Sepsis Event Note (ED) - Focused Exam Vital Signs: Vital Signs Temp Pulse Resp BP Pulse Ox 07/04/20 18:04 36.7 C 85 17 153/107 H 100
[2020-07-04] MEDS ORDERED: Sodium Chloride 0.9% 1,000 ML IV SCH ×2 (18:30)
[2020-07-04] MEDS ORDERED: Promethazine 25 MG/ML SDV IV PRN (18:49)
[2020-07-04] MEDS: Potassium Chloride 20 MEQ Tab.ER PO ONE ×2 (19:05→19:25)
[2020-07-04] MEDS ORDERED: Ondansetron 4 MG/2 ML SDV IVPUSH STA (19:14)
[2020-07-04] MEDS ORDERED: LORazepam 2 MG/ML SDV IVPUSH STA ×2 (19:14→20:14)
[2020-07-04] MEDS ORDERED: NS + KCl 20mEq/L 1,000 ML IV SCH (19:15)
[2020-07-04] MEDS ORDERED: Dexamethasone 4 MG/ML SDV IVPUSH STA (19:30)
[2020-07-04] MEDS ORDERED: Potassium Chloride 20 MEQ Tab.ER PO STA (20:13)
[2020-07-04] MEDS ORDERED: LORazepam 2 MG/ML SDV IV PRN (20:39)
[2020-07-04] MEDS ORDERED: NS + KCl 20mEq/L 2,000 ML IV SCH (20:45)
[2020-07-04] MEDS: Potassium Chloride 20 MEQ in Premix Bag 1 BAG IV SCH (21:11)
[2020-07-05] MEDS: Ondansetron 4 MG/2 ML SDV IV PRN ×2 (00:42→07:21)
[2020-07-05] MEDS: Sodium Chloride 0.9% 10 ML Syringe FLUSH PRN ×3 (00:48→07:22)
[2020-07-05] MEDS: Potassium Chloride 20 MEQ in Premix Bag 1 BAG IV SCH ×2 (01:42→04:43)
[2020-07-05] MEDS ORDERED: NS + KCl 20mEq/L 1,000 ML IV SCH (06:00)
[2020-07-05] MEDS ORDERED: Pantoprazole 40 MG Vial IVPUSH SCH (09:00)
--- NOTE | 2020-07-05 10:30 | PCM.PN ---
- General Info Date of Service: 07/05/20 Admission Dx/Problem (Free Text): 35-year-old lady presented to the emergency department last night with stomach pain, nausea, vomiting. She was admitted to observation overnight and treated with fluids, Zofran, potassium replacement. Potassium has normalized this morning and the patient states that she feels much better and is ready to go home. She states that she has had these problems in the past. Functional Status: Reports: Pain Controlled - Review of Systems General: Reports: No Symptoms HEENT: Reports: No Symptoms Pulmonary: Reports: No Symptoms Cardiovascular: Reports: No Symptoms Gastrointestinal: Reports: Difficulty Swallowing Genitourinary: Reports: No Symptoms Musculoskeletal: Reports: No Symptoms Skin: Reports: No Symptoms Neurological: Reports: No Symptoms Psychiatric: Reports: Anxiety - Patient Data Vitals - Most Recent: Last Vital Signs Temp 36.8 C 07/05/20 07:35 Pulse 72 07/05/20 07:35 Resp 20 07/05/20 07:35 BP 127/74 07/05/20 07:35 Pulse Ox 96 07/05/20 07:35 Weight - Most Recent: 88.677 kg I&O - Last 24 Hours: Intake & Output 07/04/20 07/05/20 07/05/20 22:59 06:59 14:59 Intake Total 1999 1428 Balance 1999 1428 Lab Results Last 24 Hours: Laboratory Results - last 24 hr 07/04/20 07/04/20 07/04/20 Range/Units 18:34 18:34 18:40 WBC 14.8 H (3.0-10.3) x10-3/uL RBC 5.06 (3.60-5.20) x10(6)uL Hgb 15.1 (11.4-15.5) g/dL Hct 45.6 (34.2-48.2) % MCV 90.2 (76.7-100.5) fL MCH 29.9 (23.9-33.9) pg MCHC 33.2 (31.9-34.8) g/dL RDW 12.7 (12.3-16.5) % Plt Count 344 (151-488) x10(3)uL MPV 10.5 (7.1-12.4) fL Add Manual Diff Yes Neutrophils % (Manual) 84 H (46-82) % Band Neutrophils % 1 (0-6) % Lymphocytes % (Manual) 8 L (13-37) % Monocytes % (Manual) 7 (4-12) % Sodium 138 (135-145) mmol/L Potassium 2.8 L* (3.5-5.3) mmol/L Chloride 95 L (100-110) mmol/L Carbon Dioxide 29 (21-32) mmol/L BUN 16 (7-18) mg/dL Creatinine 1.0 (0.55-1.02) mg/dL Est Cr Clr Drug Dosing 89.75 mL/min Estimated GFR (MDRD) > 60 (>60) BUN/Creatinine Ratio 16.0 (9-20) Glucose 123 H (80-116) mg/dL Calcium 8.8 (8.6-10.2) mg/dL Total Bilirubin 0.6 (0.1-1.3) mg/dL AST 17 (5-25) IU/L ALT 19 D (12-36) U/L Alkaline Phosphatase 85 (56-112) IU/L Total Protein 7.9 (6.0-8.0) g/dL Albumin 4.3 (3.5-5.2) g/dL Globulin 3.6 g/dL Albumin/Globulin Ratio 1.2 Urine Color [place] (YELLOW) Urine Appearance Clear (CLEAR) Urine pH 6.0 (5.0-6.5) Ur Specific [place] 1.020 (1.010-1.025) Urine Protein 30 H (NEGATIVE) mg/dL Urine Glucose (UA) Normal (NORMAL) mg/dL Urine Ketones 50 H (NEGATIVE) mg/dL Urine Occult Blood Negative (NEGATIVE) Urine Nitrite Negative (NEGATIVE) Urine Bilirubin Negative (NEGATIVE) Urine Urobilinogen Normal (NEGATIVE) mg/dL Ur Leukocyte Esterase Negative (NEGATIVE) Urine RBC 0-5 (0-5) Urine WBC 0-5 (0-5) Ur Squamous Epith Cells Rare (NS,R,O) Urine Bacteria Few H (NS) Urine Opiates Screen (NEGATIVE) Ur Oxycodone Screen (NEGATIVE) Ur Propoxyphene Screen (NEGATIVE) Ur Barbituates Screen (NEGATIVE) Ur Tricyclics Screen (NEGATIVE) Ur Phencyclidine Scrn (NEGATIVE) Ur Amphetamine Screen (NEGATIVE) Urine MDMA Screen (NEGATIVE) U Benzodiazepines Scrn (NEGATIVE) U Cocaine Metab Screen (NEGATIVE) U Marijuana (THC) Screen (NEGATIVE) SARS-CoV-2 RNA (GAL) (NEGATIVE) 07/04/20 07/04/20 07/05/20 Range/Units 18:40 20:55 06:45 WBC (3.0-10.3) x10-3/uL RBC (3.60-5.20) x10(6)uL Hgb (11.4-15.5) g/dL Hct (34.2-48.2) % MCV (76.7-100.5) fL MCH (23.9-33.9) pg MCHC (31.9-34.8) g/dL RDW (12.3-16.5) % Plt Count (151-488) x10(3)uL MPV (7.1-12.4) fL Add Manual Diff Neutrophils % (Manual) (46-82) % Band Neutrophils % (0-6) % Lymphocytes % (Manual) (13-37) % Monocytes % (Manual) (4-12) % Sodium 140 (135-145) mmol/L Potassium 4.8 D (3.5-5.3) mmol/L Chloride 105 D (100-110) mmol/L Carbon Dioxide 23 (21-32) mmol/L BUN 11 (7-18) mg/dL Creatinine 0.8 (0.55-1.02) mg/dL Est Cr Clr Drug Dosing 94.54 mL/min Estimated GFR (MDRD) > 60 (>60) BUN/Creatinine Ratio 13.8 (9-20) Glucose 110 (80-116) mg/dL Calcium 8.0 L (8.6-10.2) mg/dL Total Bilirubin (0.1-1.3) mg/dL AST (5-25) IU/L ALT (12-36) U/L Alkaline Phosphatase (56-112) IU/L Total Protein (6.0-8.0) g/dL Albumin (3.5-5.2) g/dL Globulin g/dL Albumin/Globulin Ratio Urine Color (YELLOW) Urine Appearance (CLEAR) Urine pH (5.0-6.5) Ur Specific [place] (1.010-1.025) Urine Protein (NEGATIVE) mg/dL Urine Glucose (UA) (NORMAL) mg/dL Urine Ketones (NEGATIVE) mg/dL Urine Occult Blood (NEGATIVE) Urine Nitrite (NEGATIVE) Urine Bilirubin (NEGATIVE) Urine Urobilinogen (NEGATIVE) mg/dL Ur Leukocyte Esterase (NEGATIVE) Urine RBC (0-5) Urine WBC (0-5) Ur Squamous Epith Cells (NS,R,O) Urine Bacteria (NS) Urine Opiates Screen Negative (NEGATIVE) Ur Oxycodone Screen Negative (NEGATIVE) Ur Propoxyphene Screen Negative (NEGATIVE) Ur Barbituates Screen Negative (NEGATIVE) Ur Tricyclics Screen Negative (NEGATIVE) Ur Phencyclidine Scrn Negative (NEGATIVE) Ur Amphetamine Screen Negative (NEGATIVE) Urine MDMA Screen Negative (NEGATIVE) U Benzodiazepines Scrn Negative (NEGATIVE) U Cocaine Metab Screen Negative (NEGATIVE) U Marijuana (THC) Screen Positive H (NEGATIVE) SARS-CoV-2 RNA (GAL) Negative (NEGATIVE) Med Orders - Current: Current Medications Sodium Chloride (Normal Saline) 1,000 mls @ 999 mls/hr IV ASDIRECTED KAYE Last Admin: 07/04/20 18:20 Dose: 999 mls/hr Documented by: Sodium Chloride (Normal Saline) 1,000 mls @ 999 mls/hr IV ASDIRECTED KAYE Potassium Chloride/Sodium Chloride (Normal Saline With 20 Meq Kcl) 1,000 mls @ 62.5 mls/hr IV ASDIRECTED KAYE Stop: 07/05/20 21:59 Last Admin: 07/05/20 04:30 Dose: 125 mls/hr Documented by: Lorazepam (Ativan) 1 mg IV Q6H PRN PRN Reason: Nausea/Vomiting Last Admin: 07/05/20 04:28 Dose: 1 mg Documented by: Ondansetron HCl (Zofran) 4 mg IV Q4H PRN PRN Reason: Nausea/Vomiting Last Admin: 07/05/20 07:21 Dose: 4 mg Documented by: Pantoprazole Sodium (Protonix Iv) 40 mg IVPUSH DAILY [facility] Last Admin: 07/05/20 08:58 Dose: 40 mg Documented by: Promethazine HCl (Phenergan) 25 mg IV Q4H PRN PRN Reason: Nausea/Vomiting Last Admin: 07/04/20 18:56 Dose: 25 mg Documented by: Sodium Chloride (Saline Flush) 10 ml FLUSH ASDIRECTED PRN PRN Reason: Keep Vein Open Last Admin: 07/05/20 07:22 Dose: 10 ml Documented by: Discontinued Medications Dexamethasone (Decadron) 10 mg IVPUSH NOW STA Stop: 07/04/20 19:31 Last Admin: 07/04/20 19:40 Dose: 10 mg Documented by: Potassium Chloride/Sodium Chloride (Normal Saline With 20 Meq Kcl) 1,000 mls @ 999 mls/hr IV ASDIRECTED [facility] Last Admin: 07/04/20 19:24 Dose: 999 mls/hr Documented by: Potassium Chloride/Sodium Chloride (Normal Saline With 20 Meq Kcl) 2,000 mls @ 125 mls/hr IV ASDIRECTED [facility] Last Admin: 07/04/20 20:52 Dose: 125 mls/hr Documented by: Potassium Chloride 20 meq/ (Premix) 100 mls @ 50 mls/hr IV Q2H [facility] Stop: 07/05/20 02:59 Last Admin: 07/05/20 04:43 Dose: 50 mls/hr Documented by: Lorazepam (Ativan) 1 mg IVPUSH NOW STA Stop: 07/04/20 19:15 Last Admin: 07/04/20 19:32 Dose: 1 mg Documented by: Lorazepam (Ativan) 1 mg IVPUSH NOW STA Stop: 07/04/20 20:15 Last Admin: 07/04/20 20:20 Dose: 1 mg Documented by: Ondansetron HCl (Zofran) 4 mg IVPUSH ONETIME ONE Stop: 07/04/20 18:17 Last Admin: 07/04/20 18:20 Dose: 4 mg Documented by: Ondansetron HCl (Zofran) Confirm Administered Dose 4 mg .ROUTE .STK-MED ONE Stop: 07/04/20 18:17 Last Admin: 07/04/20 18:25 Dose: Not Given Documented by: Ondansetron HCl (Zofran) 4 mg IVPUSH NOW STA Stop: 07/04/20 19:15 Last Admin: 07/04/20 19:20 Dose: 4 mg Documented by: Pantoprazole Sodium (Protonix Iv) 40 mg IVPUSH ONETIME ONE Stop: 07/04/20 18:23 Last Admin: 07/04/20 18:29 Dose: 40 mg Documented by: Potassium Chloride (Klor-Con M20) 40 meq PO ONETIME ONE Stop: 07/04/20 19:01 Last Admin: 07/04/20 19:25 Dose: 40 meq Documented by: Potassium Chloride (Klor-Con M20) 40 meq PO NOW STA Stop: 07/04/20 20:14 Last Admin: 07/04/20 20:27 Dose: 40 meq Documented by: - Exam Quality Assessment: Supplemental Oxygen, DVT Prophylaxis General: Alert, Oriented, Other (Patient appears mildly anxious) Neck: Supple, Trachea Midline, No Thyromegaly, Lymphadenopathy. No: Thyromegaly Lungs: Clear to Auscultation, Normal Respiratory Effort Cardiovascular: Regular Rate, Regular Rhythm GI/Abdominal Exam: Normal Bowel Sounds, Soft, Non-Tender Back Exam: Normal Inspection Extremities: Normal Inspection, No Pedal Edema Neurological: No New Focal Deficit Psy/Mental Status: Alert, Anxious Sepsis Event Note - Evaluation Sepsis Screening Result: No Definite Risk - Focused Exam Vital Signs: Vital Signs Temp Pulse Resp BP BP Pulse Ox 07/05/20 07:35 36.8 C 72 20 127/74 96 07/05/20 04:00 35.9 C L 78 18 122/82 96 07/04/20 23:17 36.5 C 70 18 104/52 L 97 - Problem List & Annotations (1) GERD (gastroesophageal reflux disease) SNOMED Code(s): 368559116 Code(s): K21.9 - GASTRO-ESOPHAGEAL REFLUX DISEASE WITHOUT ESOPHAGITIS Status: Acute Priority: Medium Current Visit: Yes Qualifiers: Esophagitis presence: without esophagitis Qualified Code(s): K21.9 - Gastro-esophageal reflux disease without esophagitis (2) Dehydration SNOMED Code(s): 45226053 Code(s): E86.0 - DEHYDRATION Status: Acute Priority: High Current Visit: Yes Annotation/Comment:: Resolved (3) Gastritis SNOMED Code(s): 4514953 Code(s): K29.70 - GASTRITIS, UNSPECIFIED, WITHOUT BLEEDING Status: Acute Priority: High Current Visit: No Qualifiers: Gastritis type: unspecified gastritis Chronicity: acute Gastritis bleeding: without bleeding Qualified Code(s): K29.00 - Acute gastritis without bleeding (4) Hiatal hernia SNOMED Code(s): 44233201 Code(s): K44.9 - DIAPHRAGMATIC HERNIA WITHOUT OBSTRUCTION OR GANGRENE Status: Chronic Priority: Low Current Visit: No (5) Hypokalemia SNOMED Code(s): 98912337 Code(s): E87.6 - HYPOKALEMIA Status: Acute Priority: High Current Visit: Yes (6) Moderate dehydration SNOMED Code(s): 2400830775493 Code(s): E86.0 - DEHYDRATION Status: Acute Priority: High Current Visit: Yes (7) Vomiting SNOMED Code(s): 574216129 Code(s): R11.10 - VOMITING, UNSPECIFIED Status: Acute Priority: High Current Visit: Yes Qualifiers: Vomiting type: unspecified Vomiting Intractability: intractable Nausea presence: with nausea Qualified Code(s): R11.2 - Nausea with vomiting, unspecified - Problem List Review Problem List Initiated/Reviewed/Updated: Yes - My Orders Last 24 Hours: My Active Orders 07/05/20 Breakfast Regular Diet [DIET] 07/05/20 10:23 Ready for Discharge [RC] PER UNIT ROUTINE - Plan Plan:: 35-year-old lady with past medical history significant for hiatal hernia. EGD performed on 19 May 2020, patient reports no abnormal findings except for small hiatal hernia. Patient states that she had difficulty at work and did not eat all day on and forgot to take her Prilosec on and Monday. This led to gastritis, nausea, vomiting, diarrhea. She states that this exact thing has happened in the past. She states that she needs to do a much better job of remembering to take her medications as directed and not to fast for too long a period of time. States that she feels well now and is ready to go home. She did have some difficulty swallowing a piece of bagel at breakfast this morning but states that she has had this difficulty in the past and will eat soft foods at home and slowly build back to more solid foods and will chew her food better. Nausea, vomiting, gastritis, hypokalemia have resolved.
--- NOTE | 2020-07-06 20:56 | PCM.HP.2 ---
H&P History of Present Illness - General Date of Service: 07/05/20 Admit Problem/Dx: 35-year-old lady presented to the emergency department last night with stomach pain, nausea, vomiting. She was admitted to observation overnight and treated with fluids, Zofran, potassium replacement. Potassium has normalized this morning and the patient states that she feels much better and is ready to go home. She states that she has had these problems in the past. Source of Information: Patient, Old Records, Provider History Limitations: Reports: No Limitations - History of Present Illness Initial Comments - Free Text/Narative: 35-year-old lady with a history of severe GERD, hiatal hernia, EGD on 05/19/2020 came to the emergency department secondary to severe nausea, vomiting, dehydration. This is an acute on chronic problem. Patient states that she has had this problem before when she does not have time or does not remember to eat. She states that she was very busy at work and did not have time to eat and forgot to take her Prilosec. She had significant GERD which caused vomiting. She tried to eat and drink fluids and then tried just fluids but could not stop vomiting. She has no other specific concerns or complaints at this time. Onset of Symptoms: Reports: Sudden Duration of Symptoms: Reports: Hour(s): Location: Reports: Abdomen Quality: Reports: Burning, Sharp Severity: Severe Improves with: Reports: Rest Worsens with: Reports: Eating Associated Symptoms: Reports: Nausea/Vomiting, Weakness - Related Data Allergies/Adverse Reactions: Allergies Allergy/AdvReac Type Severity Reaction Status Date / Time No Known Allergies Allergy Verified 03/14/20 12:40 Home Medications: Home Meds Omeprazole 20 mg PO DAILY #14 tablet.dr 03/13/20 [Rx] ondansetron HCL [Ondansetron HCl] 4 mg PO Q4H PRN #12 tablet 03/13/20 [Rx] Ondansetron [Zofran ODT] 4 mg PO Q6H PRN #10 tab.dis 07/05/20 [Rx] Past Medical History - Past Health History Medical/Surgical History: Denies Medical/Surgical History Respiratory History: Reports: Other (See Below) Other Respiratory History: former smoker quit year 2010 [employer] History: Reports: Psychiatric History: Reports: ADHD, Anxiety, Bipolar, Depression - Past Surgical History HEENT Surgical History: Reports: Oral Surgery Social & Family History - Family History Family Medical History: No Pertinent Family History - Tobacco Use Tobacco Use Status *Q: Never Tobacco User Used Tobacco, but Quit: Yes Month/Year Tobacco Last Used: 2010 Second Hand Smoke Exposure: No - Caffeine Use Caffeine Use: Reports: Coffee Other Caffeine Use: one cup daily - Alcohol Use Days Per Week of Alcohol Use: 0 - Recreational Drug Use Recreational Drug Use: Yes Drug Use in Last 12 Months: Yes Recreational Drug Type: Reports: Marijuana/Hashish Other Recreational Drug Type: since 2006 smoking in past years Recreational Drug Use Frequency: Weekly - Living Situation & Occupation Living situation: Reports: 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.) H&P Review of Systems - Review of Systems: Review Of Systems: See Below General: Reports: Weakness, Decreased Appetite HEENT: Reports: Headaches Pulmonary: Reports: No Symptoms Cardiovascular: Reports: No Symptoms Gastrointestinal: Reports: Abdominal Pain, Decreased Appetite, Nausea, Vomiting Genitourinary: Reports: No Symptoms Musculoskeletal: Reports: No Symptoms Skin: Reports: No Symptoms Psychiatric: Reports: No Symptoms Neurological: Reports: No Symptoms Hematologic/Lymphatic: Reports: No Symptoms Immunologic: Reports: No Symptoms Exam - Exam Exam: See Below - Vital Signs Vital Signs: Last Vital Signs Temp 36.8 C 07/05/20 07:35 Pulse 72 07/05/20 07:35 Resp 20 07/05/20 07:35 BP 127/74 07/05/20 07:35 Pulse Ox 96 07/05/20 07:35 Weight: 88.677 kg - Patient Data Result Diagrams: 07/05/20 06:45 07/05/20 06:45 Sepsis Event Note - Evaluation Sepsis Screening Result: No Definite Risk - Problem List (1) GERD (gastroesophageal reflux disease) SNOMED Code(s): 130431188 ICD Code: K21.9 - GASTRO-ESOPHAGEAL REFLUX DISEASE WITHOUT ESOPHAGITIS Status: Acute Priority: Medium Qualifiers: Esophagitis presence: without esophagitis Qualified Code(s): K21.9 - Gastro-esophageal reflux disease without esophagitis (2) Dehydration SNOMED Code(s): 17013610 ICD Code: E86.0 - DEHYDRATION Status: Acute Priority: High Problem Details: Resolved (3) Gastritis SNOMED Code(s): 9690393 ICD Code: K29.70 - GASTRITIS, UNSPECIFIED, WITHOUT BLEEDING Status: Acute Priority: High Qualifiers: Gastritis type: unspecified gastritis Chronicity: acute Gastritis bleeding: without bleeding Qualified Code(s): K29.00 - Acute gastritis without bleeding (4) Hiatal hernia SNOMED Code(s): 89830561 ICD Code: K44.9 - DIAPHRAGMATIC HERNIA WITHOUT OBSTRUCTION OR GANGRENE Status: Chronic Priority: Low (5) Hypokalemia SNOMED Code(s): 06469073 ICD Code: E87.6 - HYPOKALEMIA Status: Acute Priority: High (6) Moderate dehydration SNOMED Code(s): 1824057959003 ICD Code: E86.0 - DEHYDRATION Status: Acute Priority: High (7) Vomiting SNOMED Code(s): 897276865 ICD Code: R11.10 - VOMITING, UNSPECIFIED Status: Acute Priority: High Qualifiers: Vomiting type: unspecified Vomiting Intractability: intractable Nausea presence: with nausea Qualified Code(s): R11.2 - Nausea with vomiting, unspecified Problem List Initiated/Reviewed/Updated: Yes Assessment/Plan Comment:: 35-year-old lady with past medical history significant for hiatal hernia. EGD performed on 19 May 2020, patient reports no abnormal findings except for small hiatal hernia. Patient states that she had difficulty at work and did not eat all day on and forgot to take her Prilosec on and Monday. This led to gastritis, nausea, vomiting, diarrhea. She states that this exact thing has happened in the past. She states that she needs to do a much better job of remembering to take her medications as directed and not to fast for too long a period of time. States that she feels well now and is ready to go home. She did have some difficulty swallowing a piece of bagel at breakfast this morning but states that she has had this difficulty in the past and will eat soft foods at home and slowly build back to more solid foods and will chew her food better. Nausea, vomiting, gastritis, hypokalemia have resolved.
== END 2020-07-05 11:50 | disposition home or self-care (01) ==
LOC: FB.ED 18:04 → FB.MS 20:52
PROVIDERS: ADMIT Emergency Medicine; ATTEND Family Medicine
DX: R11.2 Nausea with vomiting, unspecified (principal); K21.9 Gastro-esophageal reflux disease without esophagitis; K44.9 Diaphragmatic hernia without obstruction or gangrene; E86.0 Dehydration; K29.70 Gastritis, unspecified, without bleeding; E87.6 Hypokalemia; Z79.899 Other long term (current) drug therapy; Z87.891 Personal history of nicotine dependence; Z20.822 Contact with and (suspected) exposure to COVID-19
CPT/HCPCS: 36415; 80048; 80053; 80305; 81001; 85025; 87635; 99284; A9270; C9113; J1100; J2060; J2405; J2550; J3480; J7030; U0002